=== PATIENT | female | born 1975 | race African-American/Black ===

== ENCOUNTER 2018-11-15 00:16 | Emergency (ER) | payer MEDICAID ==
[~2018-11-15] VITALS: Ht 165.1 cm; Wt 59.0 kg
[~2018-11-15 00:16] MED LIST: HYDR-523 PO; NORT10CA PO
[2018-11-15] MEDS ORDERED: TRAMADOL 50MG TABLET PO ONE (01:45)
[2018-11-15 02:11] LABS: BASOPHILS % 0.6 % (0.0-2.0); HEMATOCRIT. 36.2 % (36.0-48.0); HEMOGLOBIN. 12.3 g/dL (12.0-16.0); LYMPHOCYTES % 24.6 % (20.0-50.0); MEAN CORPUSCULAR HEMOGLOBIN 29.2 pg (28.0-32.0); MEAN CORPUSCULAR VOLUME 85.7 fL (81.0-99.0); MEAN PLATELET VOLUME 7.8 fl (7.4-10.4); MONOCYTES % 7.6 % (2.0-8.0); NEUTROPHILS % 66.2 % (40.0-76.0); PLATELET 281 x1000/uL (130-400); RED BLOOD CELL COUNT 4.22 mill/uL (4.2-5.4); RED CELL DISTRIBUTION WIDTH 16.5 % (11.6-14.6)
[2018-11-15 02:17] LABS: CHLORIDE 108 mEq/L (98-107)
[2018-11-15 04:09] VITALS: BP 128/79
== END 2018-11-15 04:11 | disposition home or self-care (01) ==
LOC: ER 00:16
DX: R07.9 Chest pain, unspecified (principal); F41.9 Anxiety disorder, unspecified; J45.909 Unspecified asthma, uncomplicated; I10 Essential (primary) hypertension; Z88.0 Allergy status to penicillin; Z79.899 Other long term (current) drug therapy
CPT/HCPCS: 36415; 71045; 84484; 93005; 99284

== ENCOUNTER 2019-12-25 14:44 | Emergency (ER) | payer MEDICAID ==
[~2019-12-25] VITALS: Ht 165.1 cm; Wt 59.0 kg
[2019-12-25] MEDS ORDERED: SODIUM CHLORIDE 0.9% 1,000 ML IV ONE (15:34)
[2019-12-25 15:42] LABS: CLARITY URINE CLOUDY (CLEAR); COLOR URINE YELLOW (YELLOW); KETONES URINE NEGATIVE (NEGATIVE); LEUKOCYTE ESTERASE URINE 2+ (NEGATIVE); NITRITE URINE POSITIVE (NEGATIVE); OCCULT BLOOD URINE NEGATIVE (NEGATIVE); PROTEIN URINE NEGATIVE (NEGATIVE); SPECIFIC GRAVITY URINE 1.018 (1.005-1.030)
[2019-12-25 16:17] LABS: HEMATOCRIT. 33.9 % (36.0-48.0); HEMOGLOBIN. 11.5 g/dL (12.0-16.0); MEAN CORPUSCULAR HEMOGLOBIN 29.6 pg (28.0-32.0); MEAN CORPUSCULAR VOLUME 87.1 fL (81.0-99.0); MEAN PLATELET VOLUME 7.1 fl (7.4-10.4); PLATELET 135 x1000/uL (130-400); RED BLOOD CELL COUNT 3.89 mill/uL (4.2-5.4); RED CELL DISTRIBUTION WIDTH 17.2 % (11.6-14.6)
[2019-12-25 16:25] LABS: PARTIAL THROMBOPLASTIN TIME 25.4 sec (23.4-31.0); PROTHROMBIN TIME 10.7 sec (9.6-11.0)
[2019-12-25 16:52] LABS: NUCLEATED RED BLOOD CELLS 1 /100 WBC
[2019-12-25 16:53] LABS: PLATELET ESTIMATE NORMAL
[2019-12-25 17:03] LABS: CHLORIDE 107 mEq/L (98-107)
[2019-12-25 17:14] LABS: B-HCG QUANTITATIVE < 1 mIU/mL (<3)
[2019-12-25] MEDS ORDERED: NITROFURANTOIN 100MG M/M CAPSULE PO ONE (18:45)
[2019-12-25 19:19] VITALS: BP 119/67
== END 2019-12-25 19:21 | disposition home or self-care (01) ==
LOC: ER 14:44
DX: N30.90 Cystitis, unspecified without hematuria (principal); I10 Essential (primary) hypertension; R73.03 Prediabetes; J45.909 Unspecified asthma, uncomplicated
CPT/HCPCS: 36415; 76830; 76856; 80053; 81003; 84702; 85025; 85610; 85730; 86850; 86900; 86901; 87077; 87086; 87186; 93005; 99285; J7030

== ENCOUNTER 2020-06-27 12:17 | Observation (INO) | payer MEDICAID | END 2020-06-27 14:05 | disposition home or self-care (01) | LOC: 8 EST LDRP 12:17 | PROVIDERS: ADMIT Specialist; ATTEND Specialist | DX: O26.893 Other specified pregnancy related conditions, third trimester (principal); R10.9 Unspecified abdominal pain; Z3A.39 39 weeks gestation of pregnancy | CPT/HCPCS: 59025; 76815; G0378; 99281 ==